=== PATIENT | male | born 1950 | race Two or more races ===

== ENCOUNTER 2023-12-14 11:08 | Inpatient (IN) | payer OTHER ==
[~2023-12-14] VITALS: Ht 162.6 cm; Wt 94.3 kg
[2023-12-14] MEDS ORDERED: SIMVASTATIN20 MG PO (12:16)
[2023-12-14] MEDS ORDERED: SYNTHROID125 MCG PO (12:16)
[2023-12-14] MEDS ORDERED: LOSARTAN-HCTZ1 EAC2 PO (12:16)
[2023-12-14] MEDS ORDERED: ARICEPT5 MG PO (12:17)
[2023-12-20] MEDS ORDERED: ONDANSETRON HCL 2 MG/ML VIAL IV PRN (11:30)
[2023-12-20] MEDS ORDERED: DEXTROSE 50 % IN WATER 0.5 G/ML DISP.SYRIN IV PRN ×2 (11:30→14:15)
[2023-12-20] MEDS ORDERED: 0.9 % SODIUM CHLORIDE 1,000 ML IV SCH (11:30)
[2023-12-20] MEDS ORDERED: OxyCODONE HCL 5 MG TABLET (ROXICODONE) PO PRN (11:30)
[2023-12-20] MEDS ORDERED: MORPHINE SULFATE 4 MG/ML CARTRIDGE IV PRN (11:30)
[2023-12-20] MEDS ORDERED: LIDOCAINE HCL 1%/EPINEPHRINE 20ML VIAL IJ ONE (11:45)
[2023-12-20] MEDS ORDERED: CEFTRIAXONE SODIUM 2,000 MG VIAL IV ONE (11:45)
[2023-12-20] MEDS ORDERED: METRONIDAZOLE/SODIUM CHLORIDE 500 MG/100 ML PIGGYBACK IV ONE (11:45)
[2023-12-20] MEDS ORDERED: BUPIVACAINE HCL 30 ML VIAL IJ ONE (11:45)
[2023-12-20] MEDS ORDERED: ACETAMINOPHEN 500 MG GEL..CAP PO SCH (14:00)
[2023-12-20] MEDS ORDERED: SUGAMMADEX SODIUM 200 MG/2 ML VIAL IV ONE (14:00)
[2023-12-20] MEDS ORDERED: INSULIN LISPRO 1,000 UNIT/10 ML UNITS SUBCUTANEO PRN (14:15)
[2023-12-20] MEDS ORDERED: ENALAPRILAT DIHYDRATE 1.25 MG/ML VIAL IV PRN (14:15)
[2023-12-20] MEDS ORDERED: MORPHINE SULFATE 4 MG/ML VIAL IV ONE (15:45)
[2023-12-20] MEDS ORDERED: HYOSCYAMINE SULFATE 0.125 MG TAB.SUBL SL SCH (17:00)
[2023-12-20] MEDS ORDERED: POLYETHYLENE GLYCOL 3350 17 GM BLIST.PACK PO SCH (17:00)
[2023-12-20] MEDS ORDERED: GABAPENTIN 300 MG CAPSULE PO SCH (17:00)
[2023-12-20] MEDS ORDERED: METRONIDAZOLE/SODIUM CHLORIDE 500 MG/100 ML PIGGYBACK IV SCH (17:00)
[2023-12-20 17:51] LABS: HEMATOCRIT 43.1 % (39.0-48.0); MEAN CELL VOLUME 95.4 fL (80.0-100.00); MEAN CORPUSCULAR HEMOGLOBIN 33.2 pg (27.00-32.0); MEAN CORPUSCULAR HGB CONC 34.8 g/dl (32.0-36.0); PLATELET COUNT 171 K/uL (150-450); RED BLOOD COUNT 4.51 M/uL (4.00-6.00)
[2023-12-20 18:24] LABS: ALBUMIN 3.5 gm/dL (3.4-5.0); CALCIUM 9.2 mg/dL (8.5-10.1); CREATININE SERUM 1.24 mg/dL (0.70-1.30); GFR 56.83; POTASSIUM 3.78 mEq/L (3.5-5.1)
[2023-12-20 20:31] VITALS: BP 159/78; O2SAT 96
[2023-12-20] MEDS ORDERED: CELECOXIB 200 MG CAPSULE PO SCH (21:00)
[2023-12-20] MEDS ORDERED: FAMOTIDINE/PF 20 MG/2 ML VIAL IV PUSH SCH (21:00)
[2023-12-20 21:41] VITALS: O2SAT 96
[2023-12-20 22:56] VITALS: BP 130/61; O2SAT 99
[2023-12-20 23:13] LABS: ABG PH 7.365 (7.35-7.45)
[2023-12-20 23:14] LABS: ABG pCO2 40.4 mmHg (35-45); BASE EXCESS -2.6 mmol/l; BICARBONATE 22.6 mmol/l (23-25); Tco2 23.8 mmol/l; allen test SATISFACTORY; o2 21 %; puncture site RADIAL RIGHT
[2023-12-20 23:15] LABS: SaO2 92.9 %
[2023-12-21] VITALS (8 sets, daily range): BP systolic 114–130; BP diastolic 57–76; O2SAT 90–97
[2023-12-21] MEDS ORDERED: SYNTHROID 125 MCG (MARCA ORIGINAL) PO SCH (06:00)
[2023-12-21 06:18] LABS: HEMATOCRIT 41.1 % (39.0-48.0); HEMOGLOBIN 14.5 g/dL (13-16.00); MEAN CELL VOLUME 95.5 fL (80.0-100.00); MEAN CORPUSCULAR HEMOGLOBIN 33.6 pg (27.00-32.0); MEAN CORPUSCULAR HGB CONC 35.2 g/dl (32.0-36.0); PLATELET COUNT 162 K/uL (150-450); RED BLOOD COUNT 4.31 M/uL (4.00-6.00); RED CELL DISTRIBUTION WIDTH 12.5 % (11.5-14.5)
[2023-12-21 06:55] LABS: ALBUMIN 3.2 gm/dL (3.4-5.0); CALCIUM 8.8 mg/dL (8.5-10.1); CREATININE SERUM 1.03 mg/dL (0.70-1.30); GFR 70.4; MAGNESIUM 1.9 mg/dL (1.8-2.4); PHOSPHOROUS 2.7 mg/dL (2.5-4.9); POTASSIUM 3.64 mEq/L (3.5-5.1)
[2023-12-21] MEDS ORDERED: LOSARTAN/HYDROCHLOROTHIAZIDE 1 TAB TABLET PO SCH (09:00)
[2023-12-21] MEDS ORDERED: DONEPEZIL HCL 5 MG TABLET PO SCH (09:00)
[2023-12-21] MEDS ORDERED: SIMVASTATIN 20 MG TABLET PO SCH (17:00)
[2023-12-21] MEDS ORDERED: ENOXAPARIN SODIUM 40 MG/0.4 ML SYRINGE SUBCUTANEO SCH (17:00)
[2023-12-22 00:33] VITALS: BP 133/63; O2SAT 98
[2023-12-22 01:49] VITALS: O2SAT 90
[2023-12-22 06:29] LABS: HEMATOCRIT 37.9 % (39.0-48.0); HEMOGLOBIN 13.4 g/dL (13-16.00); MEAN CELL VOLUME 94.6 fL (80.0-100.00); MEAN CORPUSCULAR HEMOGLOBIN 33.4 pg (27.00-32.0); MEAN CORPUSCULAR HGB CONC 35.3 g/dl (32.0-36.0); RED BLOOD COUNT 4.01 M/uL (4.00-6.00); RED CELL DISTRIBUTION WIDTH 12.4 % (11.5-14.5)
[2023-12-22 06:34] LABS: PLATELET COUNT 124 K/uL (150-450)
[2023-12-22 07:15] LABS: CALCIUM 8.6 mg/dL (8.5-10.1); CREATININE SERUM 0.88 mg/dL (0.70-1.30); GFR 84.42
[2023-12-22 08:00] LABS: POTASSIUM 2.96 mEq/L (3.5-5.1)
[2023-12-22 08:01] LABS: PHOSPHOROUS 1.8 mg/dL (2.5-4.9)
[2023-12-22] MEDS ORDERED: ENOXAPARIN SODIUM 40 MG/0.4 ML SYRINGE SUBCUTANEO SCH (09:00)
[2023-12-22] MEDS ORDERED: TAMSULOSIN HCL 0.4 MG CAP PO SCH (09:00)
[2023-12-22 09:12] VITALS: BP 155/77; O2SAT 100
[2023-12-22 09:46] VITALS: O2SAT 90
[2023-12-22] MEDS ORDERED: LACTOBACILLUS ACIDOPHILUS 1 CAP CAP PO NR (10:50)
[2023-12-22] MEDS ORDERED: POTASSIUM CHLORIDE 20MEQ/100ML H2O PB IV SCH (11:00)
[2023-12-22] MEDS ORDERED: POTASSIUM PHOS,M-BASIC-D-BASIC 45mM/15ml VIAL IV NR (12:00)
[2023-12-22 16:00] VITALS: BP 144/71; O2SAT 98
[2023-12-22] MEDS ORDERED: GABAPENTIN 100 MG CAPSULE PO SCH (17:00)
[2023-12-22] MEDS ORDERED: LACTOBACILLUS ACIDOPHILUS 1 CAP CAP PO SCH (17:00)
[2023-12-22] MEDS ORDERED: GABAPENTIN 300 MG CAPSULE PO SCH (21:00)
[2023-12-22] MEDS ORDERED: POTASSIUM PHOS,M-BASIC-D-BASIC 45mM/15ml VIAL IV ONE (22:00)
[2023-12-23 00:57] VITALS: BP 146/81; O2SAT 98
[2023-12-23] MEDS ORDERED: TRAM1TAB98 PO (09:00)
[2023-12-23] MEDS ORDERED: TAMS0.4C PO (09:00)
[2023-12-23] MEDS ORDERED: HYOSCYAMINE0.125 M1 SL (09:00)
[2023-12-23] MEDS ORDERED: INTESTINEX680 M1 PO (09:00)
[2023-12-23] MEDS ORDERED: PEPCID AC20 MG PO (09:00)
[2023-12-23 09:56] VITALS: BP 150/82; O2SAT 100
== END 2023-12-23 11:32 | disposition home or self-care (01) | DRG 330 ==
LOC: O/R 12-20 06:52 → SURH 12-20 07:00 → SURG 12-20 16:15
PROVIDERS: Internal Medicine Geriatric Medicine; ADMIT Surgery; ATTEND Surgery
PROC: 0DBP4ZZ Excision of Rectum, Percutaneous Endoscopic Approach (ICD-10-PCS; 2023-12-20)
PROC: 0DTN4ZZ Resection of Sigmoid Colon, Percutaneous Endoscopic Approach (ICD-10-PCS; principal; 2023-12-20 07:00)
DX: K57.20 Diverticulitis of large intestine with perforation and abscess without bleeding (principal); K56.600 Partial intestinal obstruction, unspecified as to cause; K56.609 Unspecified intestinal obstruction, unspecified as to partial versus complete obstruction